=== PATIENT | male | born 1955 | race Caucasian/White ===

== ENCOUNTER → 2016-11-25 | Outpatient (CLI) | payer BC ==
[~2016-11-25] MED LIST: AMLODIPINE5 M1 PO; DULCOLAX5 MG PO; HYDROCODONE/HO473 ML PO; HYDROCORTI30 GM/TUB3 TP; LISINOPRIL/HYDR1 TAB PO; LORTAB 500 MG-71 TAB PO
--- NOTE | 2016-11-25 16:47 | RADIOLOGY REPORT PS360 ---
US RUQ-(ABD LTD)1ORGAN/QUAD/FU HISTORY: RUQ PAIN ORDERING PHYSICIAN: Vinicio Ko MD PATIENT AGE: 61 years COMPARISON: None FINDINGS: PANCREAS: Somewhat poorly demonstrated. No obvious mass LIVER: Increased echogenicity of liver suggesting hepatic steatosis. No focal liver lesion RIGHT KIDNEY: Unremarkable. Normal size and echogenicity. No hydronephrosis GALLBLADDER: No gallstones, gallbladder wall thickening, pericholecystic fluid, or biliary dilatation. IMPRESSION: 1. Negative gallbladder ultrasound. 2. Hepatic steatosis.
== END ==
LOC: RAD 14:48
DX: R10.11 Right upper quadrant pain (principal)